=== PATIENT | male | born 1960 | race Caucasian/White ===

== ENCOUNTER → 2016-10-14 | Outpatient (CLI) | payer MEDICARE, OTHER ==
[~2016-10-14] MED LIST: ACETAMINOPHEN650 M3 PO; ASACOL HD800 MG PO; ASPIRIN81 M1 PO; ASPIRIN81 M2 PO; ASPIRIN81 MG PO; ATENOLOL PO; ATENOLOL25 MG PO; ATORVASTATIN CA40 MG PO; BENTYL10 MG PO; BENTYL20 MG; BENTYL20 MG PO; CARVEDILOL25 MG PO; CIPRO; CLOPIDOGREL75 MG PO; COLACE PO; DEXILANT30 MG PO; DITROPAN5 MG PO; EFFIENT10 MG PO; GABAPENTIN800 MG PO; GLUCOTROL PO; HUMALOG KW200 UNIT/1; HUMALOG100 UNIT/1 SUBQ; INVOKANA100 MG PO; ISOSORBIDE MON120 M1 PO; KEPPRA1000 MG PO; LANTUS SOLOSTAR3 ML SUBQ; LISINOPRIL-HCTZ1 T14 PO; LISINOPRIL10 MG PO; LORTAB 101 TAB 10/5 PO; METFORMIN HCL500 M1 PO; METFORMIN PO; METRONIDAZOLE PO; MILK OF MAGNESIA PO; MULTIVITAMIN1 UDCAP PO; NEURONTIN PO; NEURONTIN800 MG PO; NITROGLYGERIN0.4 MG SL; OMEPRAZOLE20 M2 PO; OMEPRAZOLE40 M1 PO; ONDANSETRON HCL4 M1 PO; PHENERGAN25 MG PO; PRAVASTATIN SOD20 MG PO; PROMETHAZINE HC25 MG PO; REGLAN10 MG PO; TENORMIN25 MG; TENORMIN25 MG PO; VICOPROFEN 200-1 TAB PO; VIMPAT100 MG PO; ZESTRIL10 MG PO; ZINC SULFATE PO
--- NOTE | ~2016-10-14 | CT2 ---
[facility] A Service of [facility] RADIOLOGY TEXT RESULTS PATIENT: MAGUE CALHOUN LOCATION: [facility] : 60 UNIT #: [id number] AGE: [address]: Dennis Bonilla MD SEX: M ORDER DR: [id number] [facility] [address] [place], [place] [address] [id number] MR#: [id number] Acc #: [id number] NAME: MAGUE CALHOUN : 1960 SEX: M STUDY DATE/TIME: 10/14/2016 13:31 UNIT: [facility] ROOM: STUDY DESCRIPTION: CT Abd and Pelv W Cont Attending Physician: Dennis Bonilla M.D. Referring Physician: Dennis Bonilla M.D. Ordering Physician: Dennis Bonilla M.D. Primary Care Physician: Oskar Peters M.D. MEDICAL IMAGING REPORT This report is preliminary unless electronic signature is present EXAM CT abdomen and pelvis, with contrast. HISTORY Diverticulitis. Diarrhea, vomiting and nausea for the past 6-7 years since colostomy reversal in 2009. PROCEDURE Contrast-enhanced CT of the abdomen and pelvis. 100 mL of Isovue-370. This CT exam was performed with one or more of the following radiation dose reduction techniques: automatic exposure control, adjustment of mA and/or kV according to patient size, and iterative reconstruction. COMPARISON STUDIES 05/21/2013 FINDINGS ABDOMEN WITH CONTRAST: Included lung bases are clear. Liver enlarged, measuring 20.8 cm. The spleen, kidneys, right adrenal gland, pancreas unremarkable. Previous cholecystectomy. Fat attenuation mass with a small amount of soft tissue attenuation centrally, measures approximately 8.2 x 6.6 cm. It is very similar to the prior and arises from the left adrenal gland. Bowel loops are nondilated. Tiny fat-containing umbilical hernia. PELVIS WITH CONTRAST: No pelvic mass or fluid. No aggressive-appearing bone lesion. IMPRESSION 1. No acute findings. No colonic wall thickening or fluid collection. 2. Hepatomegaly. [facility] A Service of [facility] RADIOLOGY TEXT RESULTS PATIENT: MAGUE CALHOUN LOCATION: [facility] : 60 UNIT #: [id number] AGE: [address]: Dennis Bonilla MD SEX: M ORDER DR: 3. Fat and minimal soft tissue attenuation mass in the left adrenal gland is not significantly changed. 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 Dictated by... Marcin Cali M.D. THIS IS AN ELECTRONICALLY VERIFIED REPORT Marcin Cali M.D. at 10/15/2016 10:02 AM WALTER/raymon TD: 10/14/2016 17:52 JOB #: [id number] MEDICAL IMAGING REPORT Page 1 of 1 COPY
[2016-10-14 12:24] LABS: HEMATOCRIT 43.6 % (38.0-50.0); HEMOGLOBIN 14.3 gm/dL (13.0-16.0); MEAN CELL VOLUME 84.1 FL (83-96); MEAN CORPUSCULAR HEMOGLOBIN 27.6 PG (28-34); MEAN CORPUSCULAR HGB CONC 32.8 g/dL (30-36); MEAN PLATELET VOLUME 8.4 FL (6.5-11.5); RED BLOOD COUNT 5.18 X10e (3.90-5.60)
[2016-10-14 12:54] LABS: ALKALINE PHOSPHATASE 85 U/L (32-92); ALT (SGPT) 19 U/L (10-40); AST (SGOT) 16 U/L (10-42); BILIRUBIN,TOTAL 0.6 mg/dL (0.2-2.0); BLOOD UREA NITROGEN 18 mg/dL (9-23); BUN/CREATININE RATIO 16.36; CALCIUM SERUM 9.2 mg/dL (8.4-10.2); CARBON DIOXIDE 25 mmol/L (22-31); CHLORIDE 105 mmol/L (100-111); CREATININE SERUM 1.1 mg/dL (0.6-1.4); GLOM FILT RATE Estimated ABOVE60 mL/min (>60); GLUCOSE FASTING 192 mg/dL (70-110); POTASSIUM 4.5 mmol/L (3.5-5.1); PROTEIN TOTAL SERUM 7.7 g/dL (6.0-8.3); SODIUM 136 mmol/L (135-145)
== END | disposition home or self-care (01) ==
LOC: CCAT 11:18
PROVIDERS: Internal Medicine
DX: R10.9 Unspecified abdominal pain (principal); R11.2 Nausea with vomiting, unspecified; K57.90 Diverticulosis of intestine, part unspecified, without perforation or abscess without bleeding; R16.0 Hepatomegaly, not elsewhere classified; E27.8 Other specified disorders of adrenal gland
CPT/HCPCS: 36415; 74177; 80053; 85027; Q9967

== ENCOUNTER 2016-12-16 13:31 | Inpatient (IN) | payer MEDICARE, OTHER ==
--- NOTE | ~2016-12-16 | CO ---
Unit #: [id number] #: [id number] Patient: MAGUE CALHOUN [id number] [facility] [address] [place], [place] [address] [id number] I MR#: [id number] NAME: MAGUE CALHOUN. ROOM: 302 Age: 56 Sex: M Admission Date: 12/16/2016 : 1960 Attending Physician: Sarthak Bah M.D. Primary Care Physician: Oskar Peters M.D. Requesting Physician: Sarthak Bah M.D. Consultation Date: 12/17/2016 CONSULTATION REPORT REASON FOR CONSULTATION Seizure-like activity. PATIENT IDENTIFICATION This is a 56-year-old, right handed, white male who was evaluated in room 302 at [facility]. SOURCE OF INFORMATION The patient and previous records and evaluation by admitting team. PROBLEM LIST 1. History of diabetes. 2. Hypertension. 3. Hyperlipidemia. 4. Coronary artery disease. 5. Obesity. 6. Peripheral neuropathy. 7. Gary gangrene. 8. Immobilization syndrome. 9. GI bleed. 10. Prior history of tobacco use. 11. Obstructive sleep apnea, intolerant to CPAP. 12. Seizure disorder for which she sees Dr. Enamorado. 13. Ventral hernia repair. 14. Laparoscopic cholecystectomy. 15. Cystoscopy. 16. Colonoscopy. 17. Prior stroke. HISTORY OF PRESENT ILLNESS This is a 56-year-old gentleman with multiple medical issues who is undergoing rehab and he had syncopal type episode. This gentleman has a history of epilepsy and he sees Dr. Enamorado. He is on Keppra 1000 mg twice daily. He has had a few "short tremor-type seizures. His other generalized seizure was in February. He reports that he had seizures as a child and then he got better. He stopped the medication and later started having seizures again. He is doing fine right now. He is awake and essentially alert. Nothing suggesting status. No falls or injuries otherwise. Nothing suggesting other issues like infection or other changes. He denies any change in medication. Unit #: [id number] #: [id number] Patient: MAGUE CALHOUN PAST MEDICAL HISTORY As discussed above. PAST SURGICAL HISTORY As discussed above. ALLERGIES Sulfa, latex, soy. HOME MEDICATIONS 1. Phenergan 25 mg q. h.s. p.r.n. 2. Coreg 25 mg b.i.d. 3. Aspirin. 4. Lantus 40 units subcu b.i.d. 5. Canagliflozin. 6. Imdur. 7. Lisinopril. 8. Keppra 1000 mg b.i.d. 9. Lipitor 40 mg daily. 10. Plavix 75 mg daily. 11. Dexilant 30 mg daily. 12. Bentyl 10 mg t.i.d. 13. Neurontin 800 mg t.i.d. 14. Humalog 10 units subcu t.i.d. FAMILY HISTORY No seizures. SOCIAL HISTORY He is on disability. Denies alcohol, tobacco or drug use. He is a reformed smoker. He is essentially wheelchair bound with significant immobilization. REVIEW OF SYSTEMS Review of systems was attempted and essentially the new issue was the syncopal-type episode. Otherwise, he denies any weight issues, fevers, chills, rigors, sweats. He does have sleep problems and has obstructive sleep apnea. He is noncompliant or non-tolerant of CPAP. HEENT: No headaches, no double vision, no earache, runny nose, sore throat. CARDIOVASCULAR: No chest pain, clubbing, cyanosis, orthopnea, palpitations. PULMONARY: No shortness of air, cough or expectoration. GASTROINTESTINAL: No nausea, vomiting, diarrhea or constipation. GENITOURINARY: No genitourinary symptoms. (1) was discussed. MUSCULOSKELETAL: No back problems. PSYCHIATRIC: No psychiatric issues. NEUROLOGICAL: As discussed. He is diabetic. No other hematologic, dermatologic or endocrine problems known to me. PHYSICAL EXAMINATION VITAL SIGNS: Temperature 98 degrees Fahrenheit, pulse 68, respirations 18, blood pressure 108/68. O2 sats are 94% to 98%, weight of 330 pounds. BMI was 41. NEUROLOGICAL EXAMINATION: The patient is awake, he is essentially alert. He is struggling with exact date of the month though. He can name and he Unit #: [id number] #: [id number] Patient: MAGUE CALHOUN can follow commands. No right/left confusion, no finger agnosia. CRANIAL NERVE EXAMINATION: Demonstrates response to threats in all ramon. Eye movements are conjugate. I did not see any ptosis, I did not see any nystagmus. Extraocular movements are intact. Sensation on the face and scalp is normal. Strength of muscles of facial expression are normal. Hearing seemed to be intact bilaterally. Tongue was midline. I could not visualize his oropharynx or uvula. Head turning was spontaneously. MOTOR EXAMINATION: Upper extremities - on the right side he is 3+/5, left side is 4+/5. Lower extremities - the best I could see is 2 distally and probably 3- proximally at best. That may his effort or there may be a chronic issue. SENSORY EXAMINATION: Significant peripheral neuropathy-type picture. Position and sensation is questionable. ROMBERG: Not evaluated. GAIT EXAMINATION: Deferred because of his present condition. REFLEXES: Toes are mute. I could not get any reflexes. DIAGNOSTIC STUDIES LABORATORY: Random glucose 176 to 232. His white count is 9.3. I did not see anything major otherwise. IMPRESSION 1. Questionable breakthrough seizure. 2. She has a history of seizures. My plan is to start him on Vimpat. Another choice would be Topamax. That may help him with losing weight but I will start with Vimpat. I don't think EEG is going to change any decision making process. Supportive care, seizure precautions, loss of consciousness precautions and other medical management as per primary team. Neurologically, I will observe him. He may be discharged to follow up with primary neurologist and primary care physician. He is not in status. Optimum anti-epileptic therapy will come with time and close observation. Call me if any other questions, issues or concerns. Dictated by... Bronwyn Bliss/rafita TD: 12/18/2016 06:20 JOB #: [id number] CONSULTATION REPORT Page 1 of 1 X Luna Wylie MD CONSULTATION REPORT
--- NOTE | ~2016-12-16 | EE ---
Unit #: [id number] #: [id number] Patient: MAGUE CALHOUN [id number] [place] [address] [id number] I MR#: [id number] NAME: MAGUE CALHOUN. : 1960 SEX: M STUDY DATE/TIME: UNIT: C3A PCU ROOM: [address] [place] [address] DESCRIPTION: EEG Attending Physician: Sarthak Bah M.D. Referring Physician: Sarthak Bah M.D. Primary Care Physician: Oskar Peters M.D. NEURODIAGNOSTICS REPORT EXAM EEG REASON FOR THE STUDY Seizure-type episode. He has a history of epilepsy. EEG DESCRIPTION This is an inpatient, digitally recorded multi-montage adult EEG with leads placed according to the International 10-20 System. Hyperventilation and photic stimulation was attempted. With the patient fully aroused, there is 8 to 9 Hz posterior dominant alpha rhythm which is symmetric and attenuates with eyes opening. There is some motion artifact. The patient did become drowsy and later on stage 2 sleep was seen. Photic stimulation - I really did not see any significant effect. Hyperventilation was also possibly attempted. I did not see any significant changes. No clinical events were seen. IMPRESSION This is essentially a normal adult awake and asleep EEG. An EEG like this does not rule out epilepsy. Clinical correlation is recommended. Dictated by... Bronwyn Bliss/rafita TD: 12/19/2016 06:07 JOB #: [id number] Unit #: [id number] #: [id number] Patient: MAGUE CALHOUN NEURODIAGNOSTICS REPORT Page 1 of 1 X Luna Wylie MD NEURODIAGNOSTICS REPORT
--- NOTE | ~2016-12-16 | EKG ---
PATIENT: MAGUE CALHOUN UNIT #: [id number] Ventricular Rate: 79 BPM Atrial Rate: 79 BPM P-R Interval: 178 ms QRS Duration: 96 ms Q-T Interval: 374 ms QTC Calculation(Bezet): 428 ms P [place]: 46 degrees Calculated R [place]: 17 degrees Calculated T [place]: 18 degrees Diagnosis Line: Normal sinus rhythm Diagnosis Line: Low voltage QRS Diagnosis Line: Borderline ECG Diagnosis Line: When compared with ECG of 14-AUG-2013 16:35, Diagnosis Line: No significant change was found Diagnosis Line: Confirmed by PATRIA CAGLE MD ([id number]) on Diagnosis Line: 12/18/2016 8:45:25 AM INTERPRETING MD: GURJIT HELTON
--- NOTE | ~2016-12-16 | DS ---
Unit #: [id number] #: [id number] Patient: MAGUE CALHOUN [id number] [facility] [address] [place], [place] [address] [id number] I MR#: [id number] NAME: MAGUE CALHOUN. ROOM: 302 Age: 56 Sex: M Admission Date: 12/18/2016 : 1960 Discharge Date: 12/19/2016 Attending Physician: Sarthak Bah M.D. Primary Care Physician: Oskar Peters M.D. DISCHARGE SUMMARY REASON FOR ADMISSION Seizure-like episode. HISTORY OF PRESENT ILLNESS/HOSPITAL COURSE The patient is a 56-year-old, morbidly obese male, with underlying history of diabetes, hypertension, seizure disorder, chronic anti-epileptic medications, followed by Dr. Enamorado as an outpatient, as well as chronic immobility syndrome. He essentially resides in a power chair the majority of his day. Apparently, he was at [facility] at [facility]. He was getting physical therapy. He had a near syncopal episode versus a possible seizure. He had no recollection of the event that happened. He mentioned a piece of his tooth falling off as well as jerky-like movement and, subsequently, he was transferred to [facility] for further care. He had mentioned, on the day of admission, that he stopped taking all of his seizure medications. He does not miss the other medications but he doesn't take any seizure medications per se. He does have a prior history of coronary artery disease with a stent placement. He is usually followed by Dr. Swenson. Through hospital course, consultation was placed to neurology services. Patient underwent CT head noncontrast which did not show any acute process. Routine laboratory studies were also performed. Recommendation has been made for patient to be discharged on Vimpat 100 mg p.o. b.i.d. He will follow up with Dr. Enamorado. He routine also is supposed to be taking Keppra 1000 mg p.o. b.i.d. and this was also reinforced. He needs to take both medications. He also, because of his prior history of coronary disease, consultation had been placed to [facility]. Dr. Painter saw and evaluated the patient. He was noted to be orthostatic with tachybrady arrhythmias which were noted. Recommendation was made from their standpoint for the patient's Coreg to be discontinued altogether, lisinopril to be decreased to 10 mg as well as outpatient evaluation and possible outpatient Holter monitor and further workup to be conducted as an outpatient. Recommendation was made to be followed up with Dr. Swenson at time of discharge. In regards to his prior history of diabetes, he was maintained on routine Unit #: [id number] #: [id number] Patient: MAGUE CALHOUNVida and will be discharged on the same regimen to which he was recently admitted for. FINAL DISCHARGE DIAGNOSES 1. Presyncopal versus seizure. 2. Severe morbid obesity. 3. Chronic immobility syndrome, essentially wheelchair bound. 4. Hypertension. 5. Diabetes. 6. Prior history of seizure disorder. 7. Longstanding history of noncompliance. 8. Coronary artery disease, status post stent placement in past. 9. Neuropathy, likely diabetic in origin. FINAL DISCHARGE MEDICATIONS 1. Tylenol 650 mg p.o. q.6 p.r.n. 2. Neurontin 800 mg p.o. t.i.d. 3. Vimpat 100 mg p.o. b.i.d. 4. Keppra 1000 mg p.o. b.i.d. 5. Atorvastatin 40 mg p.o. daily. 6. Bentyl 10 mg p.o. q.8 p.r.n. 7. Lisinopril 10 mg p.o. daily. 8. Lipitor 40 mg p.o. q. h.s. 9. Lantus 40 units subcu b.i.d. 10. Humalog 10 units t.i.d. with meals. 11. Aspirin 81 mg daily. 12. Plavix 75 mg p.o. daily. 13. Dexilant 30 mg p.o. daily. 14. Invokana 100 mg p.o. q. a.m. 15. Imdur 120 mg p.o. daily. DISCHARGE CONDITION Stable. DISCHARGE DISPOSITION Home. Dictated by... Bronwyn Moctezuma TD: 12/20/2016 07:10 JOB #: [id number] DISCHARGE SUMMARY Page 1 of 1 X Aliyah Mosquera MD DISCHARGE SUMMARY
--- NOTE | ~2016-12-16 | BMI ---
[facility] Nutrition Therapy DATE: 12/17/16 Patient: MAGUE Jorge CALHOUN Physician: JEFFREY Address: [address] Room/Bed: [address] [place] [address], Zip: [place] [address] Admit Date: 12/16/16 Date of : 60 Height: 6 3 Weight: 330 149.9 HIGH BMI NOTE: DX: 56 y/o male admitted with seizure-like episode ANTHROPOMETRICS: Ht: 75", Wt: 149.9 kg, BMI: 41 (Stage III obese) DIET: Consistent carb INTERVENTION: + healthy heart restriction, meds/fluids per MD RECOMMENDATIONS: Consider adding healthy heart restriction to current diet order to promote a gradual weight loss towards a healthy BMI range. Respectfully, Ashley Lopez RD, LD [facility] and [facility] cc: client file
--- NOTE | ~2016-12-16 | CT71 ---
[facility] A Service of [facility] RADIOLOGY TEXT RESULTS PATIENT: MAGUE CALHOUN LOCATION: [facility] 302-01 : 60 UNIT #: [id number] AGE: [address]: Sarthak Bah MD SEX: M ORDER DR: [id number] [facility] [address] [place], [place] [address] [id number] E MR#: [id number] Acc #: [id number] NAME: MAGUE CALHOUN : 1960 SEX: M STUDY DATE/TIME: 12/16/2016 15:20 UNIT: [facility] ROOM: STUDY DESCRIPTION: CT Head Wo Contrast Attending Physician: Osmani Payne D.O. Ordering Physician: Osmani Payne D.O. Primary Care Physician: [facility] REPORT This report is preliminary unless electronic signature is present EXAM CT of the head without contrast INDICATIONS Seizure today. Patient also had a near syncopal episode. TECHNIQUE Axial CT images were obtained from the vertex of the skull through the skull base. No intravenous contrast material was administered. TECHNIQUE Axial noncontrast images were obtained from the skull base to the vertex. This CT exam was performed with one or more of the following radiation dose reduction techniques: automatic exposure control, adjustment of mA and/or kV according to patient size, and iterative reconstruction. FINDINGS Ventricular size and configuration are normal. There is no evidence of acute infarct or hemorrhage. There are no extraaxial fluid collections. No mass lesion or mass effect is seen. There are no skull fractures. IMPRESSION Normal noncontrast head CT. Dictated by... Magi Omer M.D. THIS IS AN ELECTRONICALLY VERIFIED REPORT Magi Omer M.D. at 12/17/2016 5:59 PM AFF/to TD: 12/16/2016 18:41 [facility] A Service [facility] RADIOLOGY TEXT RESULTS PATIENT: MAGUE CALHOUN LOCATION: C3A 302-01 : 60 UNIT #: [id number] AGE: [address]: Sarthak Bah MD SEX: M ORDER DR: SANTA #: [id number] MEDICAL IMAGING REPORT Page 1 of 1 COPY
--- NOTE | ~2016-12-16 | HP ---
Unit #: [id number] #: [id number] Patient: MAGUE CALHOUN [id number] [facility] [address] [place], [place] [address] [id number] E MR#: [id number] NAME: MAGUE CALHOUN ROOM: Age: 56 Sex: M Admission Date: 12/16/2016 : 1960 Attending Physician: Osmani Payne D.O. Primary Care Physician: Oskar Peters M.D. HISTORY AND PHYSICAL CHIEF COMPLAINT Seizurelike episode. HISTORY OF PRESENTING ILLNESS The patient is a 56-year-old morbidly obese man with a past medical history of diabetes, hypertension, history of seizure disorder, already on antiepileptic medications, who follows up with Dr. Enamorado. He was at the [facility] and while getting physical therapy he had a near-syncopal episode versus seizures and he was brought to the emergency room and getting admitted. Apparently the patient does not recollect what exactly happened. He says he started to do some exercise. He passed out and could not recollect any seizure like episode. He mentions about a piece of his tooth falling off. He denies any tongue bite. He denies any urinary or fecal incontinence. He was noted to have jerky movements by the nursing staff in the Rehab. He was transferred here for further care. He was given a dose of Keppra. Patient mentions that he does take his seizure medications. He did not miss any of the medications, denies any fever, denies any chills, complains of dry cough, no sore throat, no chest pain, no shortness of breath, no abdominal pain, diarrhea or dysuria. PAST MEDICAL HISTORY 1. History of diabetes mellitus type 2. 2. History of hypertension. 3. Hyperlipidemia. 4. History of coronary artery disease, status post stent placement. He follows up with Dr. Swenson at [facility] and he mentions that he saw him like a month ago. ALLERGIES Sulfa, latex, soy. HOME MEDICATIONS Include: 1. Phenergan 25 mg q.h.s. p.r.n. 2. Coreg 25 mg b.i.d. 3. Aspirin. 4. Lantus 40 units subcu b.i.d. 5. Canagliflozin 100 mg daily. 6. Imdur 120 mg daily. 7. Lisinopril and hydrochlorothiazide 20/12.5 mg daily. 8. Keppra 1000 mg b.i.d. Unit #: [id number] #: [id number] Patient: MAGUE CALHOUN 9. Lipitor 40 mg daily. 10. Plavix 75 mg daily. 11. Dexilant 30 mg daily. 12. Bentyl 10 mg t.i.d. 13. Neurontin 800 mg t.i.d. 14. Humalog 10 units subcu t.i.d. SOCIAL HISTORY He is currently on disability, denies any smoking, alcohol or using illicit drugs. FAMILY HISTORY Noncontributory to the current admission. PAST SURGICAL HISTORY Surgery for Gary gangrene. REVIEW OF SYSTEMS Complete review of systems done, negative except for what is mentioned in the HPI. PHYSICAL EXAMINATION VITAL SIGNS: Temperature 98, pulse rate 80, respiration 17, blood pressure 132/65. GENERAL: Patient is alert and oriented x3, lying in the bed in no acute distress. HEENT: Normocephalic and atraumatic. No icterus. PERRLA. Extraocular muscles intact. NECK: Neck is supple. No JVD. HEART: S1, S2, regular rate and rhythm. CHEST: Bilateral equal entry, clear to auscultation. ABDOMEN: Soft, nontender. EXTREMITIES: No edema. Normal peripheral pulses. DIAGNOSTIC STUDIES LABORATORY: Glucose 232, BUN 19, creatinine 1.1, sodium 136, potassium 4.6, chloride 103, bicarb 22, WBC 11.1, hemoglobin 14.2, platelets 231. Urine tox screen negative. UA shows glucose greater than 1000. IMAGING: CT head preliminary report no acute changes. ASSESSMENT AND PLAN 1. Passing out episode, seizure versus syncopal episode: He was loaded with Keppra. Will continue with 1000 mg of Keppra b.i.d. Will consult Neurology. Will get an EEG in the morning. Also to exclude any syncopal episode will also consult Cardiology. I will obtain the records from [facility] where he had a previous extensive workup and if we do not have an echocardiogram will consider repeating an echocardiogram. 2. Diabetes mellitus: Monitor sugars Accu-Chek q.a.c. and q.h.s. Continue his Lantus. 3. Hypertension: Continue with his home medications and monitor. 4. Hyperlipidemia: Continue with statin. 5. History of coronary artery disease: Continue with Plavix. 6. DVT precautions. 7. Further recommendations per hospital course. Unit #: [id number] #: [id number] Patient: MAGUE CALHOUN Dictated by Bronwyn Gale/naldo TD: 12/16/2016 18:03 JOB #: [id number] HISTORY AND PHYSICAL Page 1 of 1 X X HISTORY AND PHYSICAL
--- NOTE | ~2016-12-16 | CR72 ---
[facility] A Service of [facility] RADIOLOGY TEXT RESULTS PATIENT: MAGUE CALHOUN LOCATION: [facility] : 60 UNIT #: [id number] AGE: [address]: Osmani Payne DO SEX: M ORDER DR: [id number] [facility] [address] [place], [place] [address] [id number] E MR#: [id number] Acc #: [id number] NAME: MAGUE CALHOUN : 1960 SEX: M STUDY DATE/TIME: 12/16/2016 14:04 UNIT: [facility] ROOM: STUDY DESCRIPTION: CR Chest Single View Portable Attending Physician: Osmani Payne D.O. Ordering Physician: Osmani Payne D.O. Primary Care Physician: Oskar Peters M.D. MEDICAL IMAGING REPORT This report is preliminary unless electronic signature is present EXAM Chest portable, 12/16/2016 at 1404 hours HISTORY A 56-year-old man with shortness of air for 2 days, history of seizures and diabetes. COMPARISON 08/13/2013 FINDINGS Two upright portable films demonstrate persistent cardiomegaly with tortuous aorta. The lungs are clear. There is no effusion or pneumothorax. IMPRESSION Stable cardiomegaly and tortuous aorta. The lungs are clear of acute of acute densities. No pleural effusion or pneumothorax is seen. Dictated by... Charisma Vargas M.D. THIS IS AN ELECTRONICALLY VERIFIED REPORT Charisma Vargas M.D. at 12/16/2016 7:08 PM Dinorah TD: 12/16/2016 15:58 JOB #: [id number] MEDICAL IMAGING REPORT Page 1 of 1 COPY
--- NOTE | ~2016-12-16 | CO ---
Unit #: [id number] #: [id number] Patient: MAGUE CELAYA [id number] [place] [id number] [facility]. [id number] MR#: [id number] NAME: MAGUE CELAYA. ROOM: 302 Age: 56 Sex: M Admission Date: 12/16/2016 : 1960 Attending Physician: Sarthak Bah M.D. Primary Care Physician: Ej Peters CONSULTATION REPORT CHIEF COMPLAINT We were asked to see for possible syncopal episode. HISTORY OF PRESENT ILLNESS Mr. Celaya is a 56-year-old white male with a history of seizure disorder and severe peripheral neuropathy, who was in rehab and underwent what was a possible seizure versus syncopal episode. He does take antiepileptic medications and follows with a neurologist, Dr. Enamorado. He was here at the [facility] and was witnessed with severe jerking movements. Patient does not have any recollection of what happened. He does not remember anything. In review of his H and P, it states that he had started to exercise and passed out. He was given a dose of Keppra as well. Patient states that while he was in the emergency room he also had some mid sternal chest discomfort. Patient states that he has problems with his heart rate going from the 30s to the 150s. There is question of possible EP study and possible event monitor at home. Again, we will obtain old records from Dr. Swenson's office. PAST MEDICAL HISTORY 1. Diabetes mellitus type 2. 2. Hypertension. 3. Dyslipidemia. 4. Severe peripheral neuropathy. 5. Arteriosclerotic heart disease with stent to the right coronary artery. He had a coronary catheterization August 25, 2014. Patient states that he believes he has had two further heart caths since that time. He is a very poor historian. We have asked for medical records from Dr. Swenson's office to elucidate a better past medical history, but catheterization from [facility], August 05, 2014, showed multivessel coronary disease with an ostial LAD 50% to 60% stenosis, mid LAD 45% to 55% stenosis. The left circumflex had luminal irregularities. Stent to the right coronary artery was widely patent. The posterior descending artery proximally had 50% stenosis and left ventriculogram showed an EF of 60%. 6. Possible myocardial infarction. PAST SURGICAL HISTORY Shows only coronary catheterization and surgery for a Gary's gangrene. HOME MEDICATIONS 1. Phenergan 25 mg nightly p.r.n. 2. Coreg 25 mg twice daily. 3. Aspirin 81 mg daily. 4. Lantus 40 units subcutaneous twice daily. Unit #: [id number] #: [id number] Patient: MAGUE CELAYA 5. Canagliflozin 100 mg daily. 6. Imdur 120 mg daily. 7. Lisinopril/hydrochlorothiazide 20/12.5 daily. 8. Keppra 1000 mg twice daily. 9. Lipitor 40 daily. 10. Plavix 75 daily. 11. Dexilant 30 mg daily. 12. Bentyl 10 mg three times a day. 13. Neurontin 800 mg three times a day. 14. Humalog 10 units subcutaneous three times daily. ALLERGIES Sulfa, latex, soy. SOCIAL HISTORY Quit tobacco in July 2007. Lives in the company of his mother. He is on disability. FAMILY HISTORY Positive for heart disease. Mother with hypertension and CO. Father with heart failure. Sister with heart disease. Brother also with CO. REVIEW OF SYSTEMS Negative for fever. Negative for chills. Positive for cough since his episode yesterday. He has been coughing up phlegm. Negative for bronchitis. Negative for asthma. Negative for emphysema. Positive for diarrhea. No bright red bleeding per rectum. No melena. No hematuria. Positive for gait disturbance, uses a cane. Positive difficulty walking. Has severe peripheral neuropathy, stating cannot really feel his legs well. No lower extremity edema. PHYSICAL EXAMINATION GENERAL: Chronically debilitated white male who is a very poor historian in no acute distress. VITAL SIGNS: Temperature 98, pulse 72, normal sinus rhythm, respirations 18, blood pressure 105/50. HEENT: Normocephalic and atraumatic. No xanthelasma. Pupils equal, round and reactive to light. Extraocular movements intact. No jugular venous distention. No elevated CVP. LUNGS: Clear to auscultation anteriorly/posteriorly bilaterally. HEART: S1, S2. No S3, S4. No murmurs, rubs, gallops. No lift. Normal sinus rhythm. ABDOMEN: Positive bowel sounds. Abdomen obese. EXTREMITIES: No clubbing, cyanosis, or edema. Two plus pulses bilaterally. No scoliosis. DIAGNOSTIC STUDIES LABORATORY: Chemistries: Sodium 137, potassium 4.4, chloride 105, CO2 of 25, BUN 15, creatinine 0.8, glucose 176. AST 22, ALT 24. We do have cholesterol studies from 2016 which showed a total cholesterol of 136, triglycerides 207, LDL 63, HDL 32. Coagulation: PT 10.1, INR 1, PTT 28.1. Point of care troponin was less than 0.05 x2. Hemoglobin 14.1, hematocrit 43, white blood cell count 9.3, platelet count 196,000. UA showed greater than 1000 glucose, trace ketones. Toxicology was negative. IMAGING: Chest x-ray: Stable cardiomegaly and a tortuous aorta. Lungs are clear. No acute densities. Unit #: [id number] #: [id number] Patient: MAGUE ECLAYA CT of the head without contrast is normal. ASSESSMENT 1. Chest discomfort with two negative troponins. 2. Known arteriosclerotic heart disease with patent stent in July 2014. 3. Dyslipidemia on statin. 4. Diabetes, insulin dependent. 5. History of seizure disorder on multiple medications. 6. History of supraventricular tachycardia on beta claire therapy. PLAN At present time, we will monitor the patient. We will obtain old records. Home medications will be resumed. No further testing at this time. We will check orthostatic blood pressures. Plan was reviewed by Dr. Lofton. Thank you very much for allowing us to participate in the care of your patient. We will follow. Dictated by... Noel Fontana.P.R.N. for Kwadwo Lofton M.D. BETHANY/angy TD: 12/17/2016 17:01 JOB #: [id number] CONSULTATION REPORT Page 1 of 1 X X CONSULTATION REPORT
[~2016-12-16 13:31] MED LIST changes: -ACETAMINOPHEN650 M3 PO; -ATORVASTATIN CA40 MG PO; -BENTYL10 MG PO; -CLOPIDOGREL75 MG PO; -DEXILANT30 MG PO; -HUMALOG100 UNIT/1 SUBQ; -LISINOPRIL10 MG PO; -NEURONTIN800 MG PO; -VIMPAT100 MG PO
[2016-12-16 14:00] LABS: BASOPHIL# 0.1 X10e3 (0-0.3); BASOPHIL% 1.2 % (0-2.5); EOSINOPHIL# 0.3 X10e3 (0-0.7); EOSINOPHIL% 3.1 % (0.0-7.0); HEMATOCRIT 43.3 % (38.0-50.0); HEMOGLOBIN 14.2 gm/dL (13.0-16.0); LYMPHOCYTE# 2.8 X10e3 (1.0-3.5); LYMPHOCYTE% 25.2 % (17.0-45.0); MEAN CELL VOLUME 83.9 FL (83-96); MEAN CORPUSCULAR HEMOGLOBIN 27.4 PG (28-34); MEAN CORPUSCULAR HGB CONC 32.7 g/dL (30-36); MEAN PLATELET VOLUME 8.2 FL (6.5-11.5); MONOCYTE# 0.9 X10e3 (0-1.0); MONOCYTE% 7.7 % (3.0-12.0); NEUTROPHIL% 62.8 % (40-75); PLATELET COUNT 231 X10e3 (140-420); RED BLOOD COUNT 5.17 X10e (3.90-5.60); RED CELL DISTRIBUTION WIDTH 15.3 % (11.0-15.5); WHITE BLOOD COUNT 11.1 X10e3 (4.0-10.5)
[2016-12-16 14:12] LABS: DIFF IND NO
[2016-12-16 14:21] LABS: PARTIAL THROMBOPLASTIN TIME 28.1 SECONDS (23.5-31.3); PROTHROMBIN TIME (PATIENT) 10.1 SECONDS (9.6-11.5)
[2016-12-16 14:32] LABS: ALBUMIN SERUM 4.1 g/dL (3.5-5.0); BILIRUBIN, DIRECT 0.1 mg/dL (0.0-0.2); BILIRUBIN,INDIRECT 0.4 mg/dL (0.0-0.9); BILIRUBIN,TOTAL 0.5 mg/dL (0.2-2.0); BUN/CREATININE RATIO 17.27; CALCIUM SERUM 9.5 mg/dL (8.4-10.2); CREATININE SERUM 1.1 mg/dL (0.6-1.4); GLOM FILT RATE Estimated 74.7 mL/min (>60); POTASSIUM 4.6 mmol/L (3.5-5.1); PROTEIN TOTAL SERUM 7.8 g/dL (6.0-8.3)
[2016-12-16 14:42] LABS: POC - CKMB 1.1 ng/mL (0.0-7.9); POC - TROPONIN <0.05 ng/mL (<=0.05)
[2016-12-16] MEDS ORDERED: CLOPIDOGREL75 MG PO (15:29)
[2016-12-16] MEDS ORDERED: ATORVASTATIN CA40 MG PO (15:29)
[2016-12-16] MEDS ORDERED: BENTYL10 MG PO (15:30)
[2016-12-16] MEDS ORDERED: NEURONTIN800 MG PO (15:30)
[2016-12-16] MEDS ORDERED: DEXILANT30 MG PO (15:30)
[2016-12-16] MEDS ORDERED: INVOKANA100 MG PO (15:31)
[2016-12-16] MEDS ORDERED: HUMALOG100 UNIT/1 SUBQ (15:31)
[2016-12-16 15:59] LABS: URINE SOURCE CLEAN CATCH
[2016-12-16 16:05] LABS: URINE APPEARANCE CLEAR; URINE BILIRUBIN NEG (NEG); URINE BLOOD NEG (NEG); URINE COLOR YELLOW; URINE GLUCOSE >1000 MG/DL (NEG); URINE KETONE TRACE (NEG); URINE LEUKOCYTE ESTERASE NEG (NEG); URINE NITRATE NEG (NEG); URINE PROTEIN NEG (NEG); URINE SPECIFIC GRAVITY 1.026 (1.003-1.035); URINE UROBILINOGEN 0.2 MG/DL (NEG)
[2016-12-16 16:11] LABS: CULTURE INDICATED? NO
[2016-12-16 16:16] LABS: AMPHETAMINE NEG (NEG); BARBITURATES NEG (NEG); BENZODIAZEPINES NEG (NEG); COCAINE NEG (NEG); MARIJUANA NEG (NEG); OPIATES NEG (NEG); TRICYCLIC ANTIDEPRESSANTS NEG (NEG); U METHADONE NEG (NEG)
[2016-12-16 18:11] LABS: POC - CKMB <1.0 ng/mL (0.0-7.9); POC - TROPONIN <0.05 ng/mL (<=0.05)
[2016-12-17 05:28] LABS: HEMOGLOBIN 14.1 gm/dL (13.0-16.0); MEAN CELL VOLUME 84.1 FL (83-96); MEAN CORPUSCULAR HEMOGLOBIN 27.6 PG (28-34); MEAN CORPUSCULAR HGB CONC 32.8 g/dL (30-36); MEAN PLATELET VOLUME 8.1 FL (6.5-11.5); RED BLOOD COUNT 5.11 X10e (3.90-5.60); RED CELL DISTRIBUTION WIDTH 15.4 % (11.0-15.5); WHITE BLOOD COUNT 9.3 X10e3 (4.0-10.5)
[2016-12-17 07:17] LABS: BUN/CREATININE RATIO 18.75; CALCIUM SERUM 9.2 mg/dL (8.4-10.2); CREATININE SERUM 0.8 mg/dL (0.6-1.4); GLOM FILT RATE Estimated 99.9 mL/min (>60); POTASSIUM 4.4 mmol/L (3.5-5.1)
[2016-12-18 04:57] LABS: CALCIUM SERUM 8.7 mg/dL (8.4-10.2); GLOM FILT RATE Estimated 83.8 mL/min (>60); POTASSIUM 4.1 mmol/L (3.5-5.1)
[2016-12-19 09:38] LABS: BUN/CREATININE RATIO 15.55; CREATININE SERUM 0.9 mg/dL (0.6-1.4); GLOM FILT RATE Estimated 95.1 mL/min (>60); POTASSIUM 4.5 mmol/L (3.5-5.1)
[2016-12-19] MEDS ORDERED: ACETAMINOPHEN650 M3 PO (11:02)
[2016-12-19] MEDS ORDERED: VIMPAT100 MG PO (11:02)
[2016-12-19] MEDS ORDERED: LISINOPRIL10 MG PO (11:04)
== END 2016-12-19 14:56 | disposition home or self-care (01) | DRG 101 ==
LOC: CED 13:31 → C3A PCU 17:27 → CED 17:51 → C3A PCU 12-18 15:26
PROVIDERS: Emergency Medicine; Internal Medicine
DX: G40.909 Epilepsy, unspecified, not intractable, without status epilepticus (principal); E11.42 Type 2 diabetes mellitus with diabetic polyneuropathy; I95.9 Hypotension, unspecified; Z68.41 Body mass index [BMI] 40.0-44.9, adult; E66.01 Morbid (severe) obesity due to excess calories; R55 Syncope and collapse; Z79.4 Long term (current) use of insulin; I10 Essential (primary) hypertension; M62.3 Immobility syndrome (paraplegic); I25.10 Atherosclerotic heart disease of native coronary artery without angina pectoris; Z95.5 Presence of coronary angioplasty implant and graft; I49.8 Other specified cardiac arrhythmias; Z91.19 Patient's noncompliance with other medical treatment and regimen; E78.5 Hyperlipidemia, unspecified; R07.89 Other chest pain; Z87.891 Personal history of nicotine dependence; Z88.2 Allergy status to sulfonamides; Z91.040 Latex allergy status; Z91.018 Allergy to other foods; Z82.49 Family history of ischemic heart disease and other diseases of the circulatory system
CPT/HCPCS: 36415; 70450; 71010; 80048; 80061; 80076; 80307; 81003; 82553; 82947; 83880; 84443; 84484; 85025; 85027; 85610; 85730; 93005; 94640; 94760; 95816; 96365; 97163; 97166; 99285; G8978-GP; G8979-GP; G8980-GP; G8987-GO; G8988-GO; G8989-GO; J1650; J1815; J1953; J2060